=== PATIENT | male | born 1995 | race Two or more races ===

== ENCOUNTER 2020-01-13 07:50 | Day surgery (SDC) | payer OTHER ==
[2020-01-10 10:19] VITALS: BMI 20.3
--- OUTSIDE RECORDS SUMMARY | 2020-01-13 07:54 | XMS ---
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 Interpretation Code Description Data Ann rce(s) Supporting Document(s ) SARS-CoV-2 [facility] , RNA This lab was ordered by BUBBA AGRAWAL MD and reported by [employer]. ID Date Data Source [id number] 09/27/2019 12:29:00 PM EDT [facility] Name Value Range Interpretation Code Description Data Ann rce(s) Supporting Document(s ) SARS-CoV-2 [facility] , RNA This lab was ordered by BUBBA AGRAWAL MD and reported by [employer]. ID Date Data Source [id number] 09/13/2019 11:15:00 AM EDT [facility] Name Value Range Interpretation Code Description Data Ann rce(s) Supporting Document(s ) SARS-CoV-2 [facility] , RNA This lab was ordered by [employer] and reported by [employer]. ID Date Data Source [id number] 09/09/2019 11:15:00 AM EDT [facility] Name Value Range Interpretation Code Description Data Ann rce(s) Supporting Document(s ) SARS-CoV-2 [facility] , RNA This lab was ordered by [employer] and reported by [employer]. ID Date Data Source [id number] 09/06/2019 10:55:00 PM EDT [facility] Name Value Range Interpretation Code Description Data Ann rce(s) Supporting Document(s ) SARS-CoV-2 [facility] , RNA This lab was ordered by [employer] and reported by [employer]. ID Date Data Source [id number] 09/02/2019 02:36:00 PM EDT [facility] Name Value Range Interpretation Code Description Data Ann rce(s) Supporting Document(s ) SARS-CoV-2 [facility] , RNA This lab was ordered by [employer] and reported by [employer]. ID Date Data Source [id number] 09/01/2019 01:39:00 PM EDT [facility] Name Value Range Interpretation Code Description Data Ann rce(s) Supporting Document(s ) SARS-CoV-2 [facility] , RNA This lab was ordered by [facility] [employer] and reported by [employer]. ID Date Data Source [id number] 08/17/2019 12:00:00 AM EDT [facility] Name Value Range Interpretation Code Description Data Ann rce(s) Supporting Document(s ) 2019-nCoV [facility] RNA XXX SRINATH+probe- Imp [facility] and reported by [employer]. Procedure Vital Signs ID Date Data Source UNK Name Value Range Interpretation Code Description Data Source(s) Diastolic blood 90 mm[Hg] 90 mm[Hg] [facility] pressure Hospital Systolic blood 136 mm[Hg] 136 mm[Hg] [facility] ns pressure [facility] Respiratory rate 18 /min 18 /min [facility] Heart rate 71 /min 71 /min [facility] Body temperature 36.01664 36.94272 [facility] Body temperature 98.2 [degF] 98.2 [degF] [facility] Body mass index 22.7 kg/m2 22.7 kg/m2 [facility] (BMI) [Ratio] Hospital Body weight 145 [lb_av] 145 [lb_av] [facility] Heart rate 93 0 - 999 Normal (applies to 93 [place] non-numeric results) [facility] Respiratory rate 16 0 - 999 Normal (applies to 16 [facility] non-numeric results) [facility] Oxygen saturation 97 % 0 - 999 Normal (applies to 97 % [facility] in Arterial blood non-numeric results) Health [facility] by Pulse oximetry Systolic blood 115 mm[Hg] 0 - 999 Normal (applies to 115 mm[Hg] [facility] non-numeric results) [facility] Diastolic blood 77 mm[Hg] 0 - 999 Normal (applies to 77 mm[Hg] [facility] non-numeric results) [facility] Body temperature 36.8 [place] 0 - 99.9 Normal (applies to 36.8 [facility] non-numeric results) [facility] Body temperature 98.3 [degF] 0 - 200 Normal (applies to 98.3 [degF ] [facility] non-numeric results) [facility] Body height 170.18 cm 170.18 cm [facility] Body weight 68.03 kg 68.03 kg [facility] Body mass index 23.4 kg/m2 23.4 kg/m2 [facility] (BMI) [Ratio] [facility] em Body surface area 1.7 m2 1.7 m2 [facility] Derived from Health Syste m formula Patient Treatment Plan of Care Planned Activity Planned Date Details Description Data Source (s) Clindamycin 300 MG Oral 02/20/2019 09:20:54 [facility] EST System
[2020-01-13] MEDS ORDERED: LIDOCAINE HCL/PF 2% SDV 5ML VIAL ONE (07:59)
[2020-01-13] MEDS ORDERED: PROPOFOL 20 ML ONE ×3 (08:00)
[2020-01-13] MEDS ORDERED: ONDANSETRON 4 MG/2 ML VIAL ONE (09:19)
[2020-01-13 09:33] VITALS: TEMP 98.5
[2020-01-13] MEDS ORDERED: ONDANSETRON *ODT* 4 MG TABLET ONE (10:19)
[2020-01-13 10:49] VITALS: BP 130/84; PULSE 78
[2020-01-13] MEDS ORDERED: ONDANSETRON *ODT* 4 MG TABLET SL ONE (15:31)
--- NOTE | 2020-01-18 10:53 | PATH ---
Surgical Pathology Report Patient Name: MAURA SERRA [facility]. Rec. #: [id number] /Age/Gender: 1995 (Age: 24) / M Account: [id number] Location: [facility] Taken: 01/13/2020 Received: 01/13/2020 Reported: 01/18/2020 Physicians: Lila Nunez M.D. Specimen(s) Received A: SECOND PORTION DUODENUM B: ANTRUM C: GE JUNCTION Clinical History Nausea and vomiting, weight loss Postoperative diagnosis: Gastritis Final Diagnosis A. SECOND PORTION DUODENUM, BIOPSY: DUODENAL MUCOSA WITH NO SIGNIFICANT PATHOLOGIC CHANGE. NO HISTOLOGIC EVIDENCE OF INTRAEPITHELIAL LYMPHOCYTOSIS. B. GASTRIC ANTRUM, BIOPSY: GASTRIC MUCOSA WITH CHRONIC GASTRITIS. IMMUNOSTAIN FOR H. PYLORI IS NEGATIVE. NEGATIVE FOR INTESTINAL METAPLASIA. C. GE JUNCTION, BIOPSY: GASTRIC MUCOSA WITH CHRONIC INFLAMMATION. NEGATIVE FOR INTESTINAL METAPLASIA. NO SQUAMOUS EPITHELIUM PRESENT. Electronically Signed Nesha Herrmann M.D. Gross Description A. Received in formalin, labeled "biopsy second portion of duodenum" is a muir, irregular portion of soft tissue measuring 0.4 cm. in greatest dimension. The specimen is submitted in toto in one cassette. B. Received in formalin, labeled "biopsy gastric antrum" is a muir, irregular portion of soft tissue measuring 0.4 cm. in greatest dimension. The specimen is submitted in toto in one cassette. C. Received in formalin, labeled "biopsy GE junction" is a muir, irregular portion of soft tissue measuring 0.4 cm. in greatest dimension. The specimen is submitted in toto in one cassette. 01/16/[address] [facility]01/16/2020
== END 2020-01-13 10:50 | disposition home or self-care (01) ==
LOC: FASU-ENDO 07:50
PROVIDERS: ATTEND Internal Medicine Gastroenterology
PROC: 0DB68ZX Excision of Stomach, Via Natural or Artificial Opening Endoscopic, Diagnostic (ICD-10-PCS; 2020-01-13)
PROC: 0DB28ZX Excision of Middle Esophagus, Via Natural or Artificial Opening Endoscopic, Diagnostic (ICD-10-PCS; 2020-01-13)
PROC: 0DB98ZX Excision of Duodenum, Via Natural or Artificial Opening Endoscopic, Diagnostic (ICD-10-PCS; principal; 2020-01-13 09:11)
DX: K29.50 Unspecified chronic gastritis without bleeding (principal); K20.80 Other esophagitis without bleeding; R11.0 Nausea
CPT/HCPCS: 88305-TC; 88342-TC; Q0162

== ENCOUNTER 2024-04-27 09:17 | Observation (INO) | payer OTHER ==
[2024-04-27 09:31] VITALS: BP 144/94; PULSE 55; RESP 16; TEMP 98.2; BMI 24.3
[2024-04-27 10:09] LABS: BASO % 0.5 % (0-2.0); EOS % 0.1 % (0-4.5); HEMATOCRIT 47.1 % (35.4-49); HEMOGLOBIN 16.1 GM/dL (11.7-16.9); LYMPH % 16.3 % (8-40); MCH 28.2 pg (25.7-33.7); MCHC 34.2 g/dl (32.0-35.9); MEAN CELL VOLUME 82.4 fl (80-96); MONO % 8.8 % (3.8-10.2); NEUT % 74.3 % (42.8-82.8); PLATELET COUNT 283 10^3/uL (134-434); RBC 5.72 M/mm3 (4.00-5.60); RDW 13.8 % (11.9-15.9); WHITE BLOOD COUNT 13.5 K/mm3 (4.0-10.0)
[2024-04-27] MEDS ORDERED: ONDANSETRON 4 MG/2 ML VIAL ONE (10:22)
[2024-04-27] MEDS ORDERED: PANTOPRAZOLE SODIUM 40 MG/100 ML BAG IVPB ONE (10:22)
[2024-04-27] MEDS ORDERED: MAG HYDROX/AL HYDROX/SIMETH 30 ML UNIT-DOSE CUP ONE (10:22)
[2024-04-27] MEDS: MAG HYDROX/AL HYDROX/SIMETH 30 ML UNIT-DOSE CUP PO ONE (10:40)
[2024-04-27 10:41] LABS: CALCIUM 9.5 mg/dL (8.5-10.1)
[2024-04-27] MEDS: PANTOPRAZOLE SODIUM 40 MG in SODIUM CHLORIDE 100 ML IVPB ONE (10:41)
[2024-04-27] MEDS: SODIUM CHLORIDE 1,000 ML IV STA (10:41)
[2024-04-27] MEDS: ONDANSETRON 4 MG/2 ML VIAL IVPUSH ONE (10:41)
[2024-04-27 10:42] LABS: ALBUMIN 4.4 g/dl (3.4-5.0); BLOOD UREA NITROGEN 15.8 mg/dL (7-18); MAGNESIUM 2.1 mg/dL (1.8-2.4)
[2024-04-27 10:44] LABS: PHOSPHOROUS 2.8 mg/dL (2.5-4.9)
[2024-04-27 10:45] LABS: CREATININE 1.1 mg/dL (0.55-1.3)
[2024-04-27 10:46] LABS: TOT PROT 8.5 g/dl (6.4-8.2)
[2024-04-27 12:21] LABS: HIV INTERPRETATION NEGATIVE (NEGATIVE)
[2024-04-27] MEDS ORDERED: POTASSIUM CHLORIDE ORAL LIQUID 20 MEQ/15 ML ONE (12:24)
[2024-04-27] MEDS: POTASSIUM CHLORIDE ORAL LIQUID 20 MEQ/15 ML PO ONE (12:28)
[2024-04-27] MEDS ORDERED: METOCLOPRAMIDE HCL INJECTION 10 MG/2 ML VIAL ONE (12:40)
[2024-04-27] MEDS: METOCLOPRAMIDE HCL INJECTION 10 MG/2 ML VIAL IVPB ONE (12:47)
[2024-04-27] MEDS ORDERED: HALOPERIDOL LACTATE 5 MG/ML ONE (14:52)
[2024-04-27] MEDS: HALOPERIDOL LACTATE 5 MG/ML IVPUSH ONE (14:56)
[2024-04-27] MEDS ORDERED: SODIUM CHLORIDE 1,000 ML IV SCH (15:45)
[2024-04-28] MEDS ORDERED: ENOXAPARIN NA (PORCINE) 40 MG/0.4 ML DISP.SYRIN SQ SCH (10:00)
== END 2024-04-27 18:42 | disposition home or self-care (01) ==
LOC: JER 09:17 → JERBED 14:49
PROVIDERS: ADMIT Internal Medicine; ATTEND Internal Medicine
PROC: 3E033GC Introduction of Other Therapeutic Substance into Peripheral Vein, Percutaneous Approach (ICD-10-PCS; principal; 2024-04-27)
PROC: 3E0337Z Introduction of Electrolytic and Water Balance Substance into Peripheral Vein, Percutaneous Approach (ICD-10-PCS; 2024-04-27)
PROC: 3E033NZ Introduction of Analgesics, Hypnotics, Sedatives into Peripheral Vein, Percutaneous Approach (ICD-10-PCS; 2024-04-27)
DX: K29.60 Other gastritis without bleeding (principal); D72.829 Elevated white blood cell count, unspecified; R11.2 Nausea with vomiting, unspecified
CPT/HCPCS: 36415; 80053; 83690; 83735; 84100; 85025; 86803; 87389; 93005; 93010; 99285-25; G0378